=== PATIENT | male | born 1970 | race Caucasian/White ===

== ENCOUNTER 2024-11-04 10:16 | Emergency (ER) | payer OTHER ==
[~2024-11-04] VITALS: Ht 188 cm; Wt 95.3 kg
--- NOTE | 2024-11-04 10:23 | ERN ---
ED Note History of Present Illness Stated Complaint: FINGER INJURY Chief Complaint: Finger Injury Time Seen by MD: 10:18 Dictation: PATIENT IS A 53-YEAR-OLD MALE HERE WITH COMPLAINTS OF LACERATIONS FROM A TABLE SAW TO THE RIGHT 3RD AND 4TH FINGERS. HE STATES HE THOUGHT HE TURNED THE SAW OFF, WHEN HE REACHED UP TO CLEAN IT IT WAS STILL RUNNING AND HIT HIS FINGERS. FULL RANGE OF MOTION NOTED THERE IS THERE WAS SCANT BLEEDING TO THE 4TH FINGER. APPEARS CAPILLARY NOT PULSATILE. LAST TETANUS SHOT WAS 7-8 YEARS AGO, THIS WE WILL BE UPDATED. STATES HE HAS A ENERGY TO PENICILLIN. NEUROVASCULAR CMS INTACT TO BOTH FINGERS. Allergies: Coded Allergies: Penicillins (Unverified Allergy, Unknown, 11/04/24) Past Medical History RN Note Reviewed/Agreed w/PFSH: Yes Review of System Dictation CONSTITUTIONAL: NEGATIVE EXCEPT FOR HPI HEAD/FACE: NEGATIVE EXCEPT FOR HPI EENT: NEGATIVE EXCEPT FOR HPI RESPIRATORY: NEGATIVE EXCEPT FOR HPI GASTROINTESTINAL/ABDOMINAL: NEGATIVE EXCEPT FOR HPI GENITOURINARY: NEGATIVE EXCEPT FOR HPI MUSCULOSKELETAL: NEGATIVE EXCEPT FOR HPI INTEGUMENTARY: NEGATIVE EXCEPT FOR HPI LACERATIONS TO RIGHT 3RD AND 4TH FINGERS PROXIMALLY NEUROLOGICAL/PSYCH: NEGATIVE EXCEPT FOR HPI HEMATOLOGIC/LYMPHATIC: NEGATIVE EXCEPT FOR HPI ALL SYSTEMS NEGATIVE, EXCEPT NOTED ABOVE. 13 POINT REVIEW OF SYSTEMS ASSESSED AND ALL NEGATIVE EXCEPT FOR ABOVE. Initial Vital Sign VS Vital Signs Date Time Temp Pulse Resp B/P (MAP) Pulse Ox O2 Delivery O2 Flow Rate FiO2 11/04/24 10:18 97.9 73 20 169/102 99 0 11/04/24 10:22 Room Air* 21 Physical Exam Dictation VITAL SIGNS REVIEWED GENERAL APPEARANCE: ALERT, ORIENTED X 3, MILD ACUTE DISTRESS, WELL DEVELOPED, NOURISHED. HEAD AND FACE: NON-TRAUMATIC. EYES: PERRL, PINK CONJUNCTIVAS, EYELID NO TRAUMA, ANTERIOR CHAMBER WITH ARCUS SENILIS. EARS: PINNAS INTACT AND NO SIGNS OF TRAUMA OR ERYTHEMA EAR CANALS CLEAR AND NO DISCHARGE TM NO ERYTHEMA NOSE: NO DISCHARGE, NO BLEEDING. OROPHARYNX: MOUTH NORMAL, TONGUE PINK, PHARYNX CLEAR,NO ERYTHEMA, TONSILS NO EXUDATES, NO ABSCESSES NOTED, MUCOUS MEMBRANE MOIST NECK: SUPPLE, NON-TENDER, NO THYROMEGALY, NO MASSES, NO JVD, NO BRUITS BREAST:DEFERRED CHEST:NO TENDERNESS, NO CREPITUS, NO PARADOXICAL MOVEMENT, NO RETRACTIONS LUNGS:CLEAR, WELL-VENTILATED, SYMMETRIC, NO RALES, NO WHEEZING, NO RHONCHI, NO STRIDOR, GOOD BREATH SOUNDS BILATERALLY HEART: REGULAR RATE, REGULAR RHYTHM, NO MURMUR, NO GALLOPS VASCULAR: NO PERIPHERAL EDEMA, ABDOMEN: SOFT, POSITIVE BOWEL SOUNDS, NONDISTENDED, NO GUARDING, NONTENDER, NO REBOUND, NO MASSES NO HEPATOMEGALY, NO SPLENOMEGALY, NO MORAN'S SIGN, NO HERNIAS. RECTAL: DEFERRED GENITAL: DEFERRED NEUROLOGICAL: NORMAL SPEECH, MOTOR FUNCTION INTACT, SENSORY FUNCTION INTACT MUSCULOSKELETAL: NECK NONTENDER, FULL RANGE OF MOTION, BACK NONTENDER, FULL RANGE OF MOTION, EXTREMITIES: NONTENDER, FULL RANGE OF MOTION SKIN: COLOR PINK, LACERATIONS TO RIGHT 3RD AND 4TH PROXIMAL PHALANX. NEUROVASCULAR CMS INTACT. NO ACTIVE BLEEDING LYMPHATIC: DEFERRED Results (Laboratory/Radiology) Laboratory/Radiology RIGHT HAND X-RAY NEGATIVE NO BONY INVOLVEMENT Labs Reviewed?: Yes ED Course ED Course Orders Procedure Category Date Status Time Hand 3+Vws Rt RAD 11/04/24 Taken 10:18 Tetanus,Diphtheria PHA 11/04/24 Complete Tox [Adult] (Diphther 10:30 Ibuprofen 800 Mg Tab PHA 11/04/24 Complete (Motrin) 10:30 Clindamycin 150mg Cap PHA 11/04/24 Complete (Cleocin 150mg Cap 10:30 Current Medications Medications (Trade) Dose Ordered Sig/Aleksandra Route PRN Reason Start Time Stop Time Status Last Admin Dose Admin Clindamycin HCl (Cleocin 150mg Cap) 600 mg ONCE ONCE PO 11/04/24 10:30 11/04/24 10:31 DC 11/04/24 10:32 Ibuprofen (moTRIN) 800 mg ONCE ONCE PO 11/04/24 10:30 11/04/24 10:31 DC 11/04/24 10:31 Tetanus/ Diphtheria Toxoids Adsorbed (DiphthERIA-teTANUS TOXOID [ADULT]/ DECAVAC) 0.5 ml ONCE ONCE IM 11/04/24 10:30 11/04/24 10:31 DC 11/04/24 10:35 Vital Signs Date Time Temp Pulse Resp B/P (MAP) Pulse Ox O2 Delivery O2 Flow Rate FiO2 11/04/24 10:22 77 17 144/89 98 Room Air* 0 21 11/04/24 10:18 97.9 73 20 169/102 99 0 1105/X-RAYS NEGATIVE, LACERATIONS WERE REPAIRED PATIENT WAS INFORMED THE LACERATIONS WERE JAGGED DUE TO MECHANISM HAS A FROM INJURY WOUND CARE WAS GIVEN WOUND CARE INSTRUCTIONS FOR HOME WERE GIVEN INCLUDING ANTIBIOTIC Medical Decision Making MDM MEDICAL DECISION-MAKING BASED ON UPDATE TETANUS FOR LACERATIONS X-RAY OF HAND TO RULE OUT BONY INVOLVEMENT LACERATIONS WERE REPAIRED PATIENT GIVEN PROPHYLAXIS ANTIBIOTICS WOUND CARE INSTRUCTIONS GIVEN Procedure Procedure Dictation: 1050/TEACHER EXPLAINED TO PATIENT HE AGREED TO PROCEED. FIRST LACERATION TO MEDIAL ASPECT OF RIGHT 4TH FINGER 2.5 CM, JAGGED EDGES WITH CONTUSED TISSUE USE 2 ML 1% LIDOCAINE PLAIN FOR DIGITAL BLOCK AFTER STERILE PREP MINIMAL SHARP DEBRIDEMENT WAS NEEDED TO REMOVE CONTUSED SKIN LACERATION CLOSED WITH FIVE 4-0 ETHILON SIMPLE INTERRUPTED SINGLE-LAYER CLOSURE PATIENT TOLERATED WELL 2ND LACERATION TO MEDIAL ASPECT RIGHT 3RD FINGER 2 CM SUPERFICIAL NO DEBRIDEMENT 2 ML LIDOCAINE 1% PLAIN USED FOR DIGITAL BLOCK LACERATION CLOSED WITH ONE 4-0 ETHILON SIMPLE INTERRUPTED SINGLE-LAYER CLOSURE PATIENT TOLERATED WELL NEUROVASCULAR CMS INTACT TO BOTH FINGERS POST REPAIR DX & DISP Disposition: Discharge Departure Impression: Primary Impression: Laceration of right middle finger Additional Impression: Laceration of right ring finger Condition: Stable Scripts Mupirocin (Bactroban 2% Oint) 2 % Oint 1 APPL TP TID for 5 Days, #15 GM 0 Refills apply to affected area(s) Prov: KOBE WILDER NP 11/04/24 Clindamycin HCl (Clindamycin HCl) 300 Mg Capsule 1 CAP PO QID for 7 Days, #28 CAP 0 Refills Prov: KOBE WILDER NP 11/04/24 Ibuprofen (Ibuprofen 800 mg Tab) 800 Mg Tab 800 MG PO Q8H PRN for fever or pain, #30 TAB 0 Refills Prov: KOBE WILDER NP 11/04/24 Additional Instructions: FOLLOW-UP WITH PRIMARY CARE PROVIDER IN 1 TO 2 DAYS. TAKE MEDICATIONS DIRECTED HERE IN THE EMERGENCY ROOM. OKAY TO CONTINUE HOME MEDICATIONS UNLESS OTHERWISE DISCUSSED DURING YOUR VISIT IN THE EMERGENCY ROOM TODAY. RETURN TO YOUR NEAREST EMERGENCY ROOM IF SYMPTOMS WORSEN OR IF THERE IS NO IMPROVEMENT. CALL 911 IF YOU NEED IMMEDIATE ASSISTANCE. TAKE TYLENOL OR MOTRIN [id number] NEEDED AND IF NO CONTRAINDICATIONS ARE PRESENT. INCREASE ORAL HYDRATION. A WOUND CULTURE OR URINE CULTURE WAS ORDERED HERE IN THE EMERGENCY ROOM DEPARTMENT PLEASE FOLLOW-UP WITH PRIMARY CARE PROVIDER AND ADVISE THEM TO GET REPEAT PORTS FROM OUR FACILITY. IF YOU HAD ANY ZACHARY WRAP/SPLINTS THAT WERE APPLIED HERE, PLEASE DO NOT REMOVE THEM UNTIL YOU SEE YOUR PRIMARY CARE OR SPECIALTY. KEEP LACERATION REPAIR CLEAN AND DRY. APPLY BACTROBAN OINTMENT 3 TIMES A DAY FOR FIVE DAYS WITH [facility]. SUTURES OUT IN 10 DAYS. TAKE ANTIBIOTICS DIRECTED UNTIL GONE. NO WORK WITH RIGHT 3RD AND 4TH FINGERS UNTIL SUTURES ARE REMOVED. Referrals: SELF,REFERRAL (PCP) Time of Disposition: 11:07 I have reviewed the case, and I agree with, Diagnosis and Plan KOBE WILDER SURGERY SCHEDULER Nov 04, 2024 10:22
[2024-11-04] MEDS: ibuPROFEN 800 MG TAB PO ONE (10:31)
[2024-11-04] MEDS: CLINDAMYCIN 150 MG CAP PO ONE (10:32)
[2024-11-04] MEDS: teTANUS/diphthERIA TOXOID [ADULT] 0.5 ML VIAL IM ONE (10:35)
[2024-11-04] MEDS ORDERED: CLIN-141 PO (11:09)
[2024-11-04] MEDS ORDERED: IBUP-2077 PO (11:09)
[2024-11-04] MEDS ORDERED: MUPI22O TP (11:09)
--- NOTE | 2024-11-04 11:17 | HMCIMG ---
HAND 3+VWS RT HISTORY: Laceration COMPARISON: None TECHNIQUE: 3 images of right hand were obtained. FINDINGS: Radiocarpal joint space narrowing is seen. Interphalangeal joint space narrowing is seen. There is no acute displaced fracture or dislocation. Degenerative changes are seen. IMPRESSION: 1. Findings as described above.
[2024-11-04] MEDS: BACITRACIN 1 EACH PACKET TP ONE (11:19)
[2024-11-04 11:20] VITALS: BP 131/89; PULSE 74; RESP 17; TEMP 97.9; O2SAT 99
== END 2024-11-04 11:25 | disposition home or self-care (01) ==
LOC: EDH 10:16
DX: S61.212A Laceration without foreign body of right middle finger without damage to nail, initial encounter (principal); S61.214A Laceration without foreign body of right ring finger without damage to nail, initial encounter; Z88.0 Allergy status to penicillin; W22.8XXA Striking against or struck by other objects, initial encounter; Y93.89 Activity, other specified; Y92.89 Other specified places as the place of occurrence of the external cause; Y99.8 Other external cause status
CPT/HCPCS: 12002; 73130; 90471; 90714; 99284